=== PATIENT | male | born 1955 | race Caucasian/White ===

== ENCOUNTER 2019-11-24 11:39 | Inpatient (IN) ==
[2019-11-24] MEDS: 0.9 % SODIUM CHLORIDE 1,000 ML IV SCH (11:51)
--- NOTE | 2019-11-24 12:06 | Emergency Department Note ---
General Adult HPI - General Chief complaint: Blood Sugar Problem Stated complaint: High blood sugar Time Seen by Provider: 11/24/19 11:48 Source: EMS Mode of arrival: EMS - History of Present Illness HPI Narrative: This patient comes over from [facility] assisted because his blood sugar was over 500. He is been there for 5 weeks recovering from a bout of pneumonia. According the he is weak confused and kind of out of it today as well. No other specific complaints however. This patient is developmentally delayed. - Related Data Home Medications Medication Instructions Recorded Confirmed EPINEPHrine [Epipen 2-Jaguar] 0.3 mg .ROUTE ONCE 04/25/15 11/24/19 FLUoxetine HCL [Prozac] 10 mg PO DAILY 04/25/15 11/24/19 Omeprazole [Prilosec] 20 mg PO DAILY 04/25/15 11/24/19 Pravastatin [Pravachol] 20 mg PO HS 04/25/15 11/24/19 bimatoprost 0.01 % eye drops 1 drp OPHTHALMIC QPM 05/05/17 11/24/19 buspirone 10 mg tablet 10 mg PO BID tab 05/05/17 11/24/19 divalproex 500 mg tablet,delayed 500 mg PO TID tab 05/05/17 11/24/19 release loratadine 10 mg tablet 10 mg PO QDAY 05/05/17 11/24/19 quetiapine 50 mg tablet 100 mg PO BID 05/05/17 11/24/19 Ascorbic Acid [Vitamin C with Nga 500 mg PO DAILY 11/24/19 11/24/19 Hips] Bisacodyl [Dulcolax] 10 mg MS DAILY PRN 11/24/19 11/24/19 Brimonidine/Dorzolamide/Pf 1 gtt BOTH EYES BID 11/24/19 11/24/19 Canagliflozin [Invokana] 300 mg PO DAILY 11/24/19 11/24/19 Cholecalciferol (Vitamin D3) 5,000 units PO DAILY 11/24/19 11/24/19 [Vitamin D3] Glimepiride 8 mg PO DAILY 11/24/19 11/24/19 Glucagon,Human Recombinant 1 mg IM Q15M PRN 11/24/19 11/24/19 [Glucagon Emergency Kit] Magnesium Hydroxide [Milk of 30 ml PO DAILY PRN 11/24/19 11/24/19 Magnesia] Na Phos,M-B/Na Phos,Di-Ba [Fleets 1 dose MS DAILY PRN 11/24/19 11/24/19 Adult] Spironolactone [Aldactone] 25 mg PO DAILY 11/24/19 11/24/19 Tamsulosin HCl [Flomax] 0.4 mg PO QHS 11/24/19 11/24/19 Timolol Maleate [Timoptic] 1 gtt BOTH EYES BID 11/24/19 11/24/19 Tolnaftate Crm 1% [Tinactin Cream 1 dose TOPICAL DAILY PRN 11/24/19 11/24/19 1%] Vitamin E 400 unit PO DAILY 11/24/19 11/24/19 sitaGLIPtin [Januvia] 100 mg PO DAILY 11/24/19 11/24/19 Allergies Allergy/AdvReac Type Severity Reaction Status Date / Time risperidone [From Risperdal] Allergy Intermediate Unknown Verified 11/24/19 11:39 venom-honey bee Allergy Unknown Verified 11/24/19 11:39 [bee venom (honey bee)] ziprasidone [From Geodon] Allergy Verified 11/24/19 11:39 Review of Systems All systems ED: reviewed and negative except as stated. Past Medical History - Past Medical History [facility] Narrative: Medical History Edema (Acute) Urinary tract infection (Acute) Tinea pedis (Acute) Diarrhea in adult patient (Acute) Cough (Acute) Medical history: Reports: DM, GERD, hyperlipidemia, hypertension, seizures, other (mentally handicapped/ Developmental delay) Psychiatric history: Reports: no psych history Surgical history ED: Reports: non-contributory - Social History smoking status: Never smoker Alcohol use: Reports: None Drug use: Reports: none Physical Exam Limitations: altered mental status, physical limitation General appearance: in no apparent distress Head: atraumatic, normocephalic Eye: Present: normal appearance ENT: Present: normal exam Neck: Present: normal inspection Chest: Present: normal inspection Respiratory: Present: normal lung sounds bilaterally Cardiovascular: Present: regular rate, normal rhythm, normal heart sounds Abdominal: Present: soft. Absent: distention, tenderness Neurological: Present: alert Psychiatric: Present: normal affect Skin: Present: warm, dry Course Vital Signs Temperature 97.0 F 11/24/19 11:39 Pulse Rate 84 11/24/19 11:39 Respiratory Rate 22 11/24/19 11:39 Blood Pressure 121/77 11/24/19 11:39 Pulse Oximetry (%) 93 11/24/19 11:39 Temperature 97.0 F 11/24/19 11:39 Pulse Rate 79 11/24/19 18:32 Respiratory Rate 13 11/24/19 18:32 Blood Pressure 134/65 11/24/19 18:32 Pulse Oximetry (%) 97 11/24/19 18:32 Medical Decision Making - MDM Narrative Medical decision making narrative: This patient was hydrated with 2 L normal saline given 10 units of Humalog prior to arrival in the emergency room his blood sugar came down to 225. Patient's sodium came back little high at 156 chloride 110. He does have a urinary tract infection was treated with Levaquin. I did discuss case with the hospitalist and he will be admitted to the hospital. - Lab Data Lab results reviewed: Yes I reviewed the patient's lab results. Result diagrams: 11/24/19 11:58 11/24/19 11:58 Lab Results 11/24/19 11/24/19 11/24/19 Range/Units 11:58 11:58 12:44 WBC 4.7 (4.50-11.00) K/mcL RBC 3.39 L (4.63-6.08) M/mcL Hgb 12.1 L (13.7-17.5) g/dL Hct 38.5 L (40.1-51.0) % POC Hct (41.0-55.0) % MCV 113.6 H (80.0-100.0) fL MCH 35.7 H (26.0-34.0) pg MCHC 31.4 (31.0-36.0) g/dL RDW 16.1 H (11.5-14.5) % Plt Count 249 (140-440) K/mcL MPV 11.8 H (7.4-10.4) fL Gran % 54.2 (38.0-78.0) % Lymph % (Auto) 32.5 (15.5-49.0) % [place] % (Auto) 12.9 H (1.0-12.0) % Eos % (Auto) 0 (0.0-7.0) % Baso % (Auto) 0.4 (0.0-2.0) % Gran # 2.57 (1.80-8.00) K/mcL Lymph # (Auto) 1.54 (1.50-4.80) K/mcL [place] # (Auto) 0.61 (0.10-0.90) K/mcL Eos # (Auto) 0 (0.00-0.70) K/mcL Baso # (Auto) 0.02 (0.00-0.30) K/mcL VBG Lactic Acid 2.1 H (0.5-2.0) mmol/L POC Sodium (133-145) mmol/L Sodium 151 H (133-145) mmol/L POC Potassium (3.3-5.1) mmol/L Potassium 3.8 (3.3-5.1) mmol/L POC Chloride (96-108) mmol/L Chloride 110 H (96-108) mmol/L Carbon Dioxide 29 (22-30) mmol/L POC Total CO2 (22-30) mmol/L Anion Gap 12.0 (8-16) POC BUN (8-23) mg/dl BUN 72 H (8-23) mg/dl Creatinine 1.6 H (0.7-1.2) mg/dl POC Creatinine (0.7-1.2) mg/dl GFR Calculation 45 Glucose 361 H (70-105) mg/dL POC Glucose (70-105) mg/dL Calcium 9.5 (8.6-10.4) mg/dl POC WB Ioniz Calcium (1.16-1.32) mmol/L Total Bilirubin 0.8 (0.0-1.0) mg/dL AST 15 (0-37) U/l ALT 8 (0-40) U/l Alkaline Phosphatase 45 (39-117) U/L Total Protein 8.6 H (5.9-8.4) gm/dL Albumin 3.4 (3.2-5.2) gm/dL Globulin 5.2 H (2.2-3.7) gm/dL Albumin/Globulin Ratio 0.7 L (1.0-2.3) Beta-Hydroxybutyrate 0.14 (< 0.27) mmol/L Urine Color Urine Appearance Urine pH (5.0-9.0) Ur Specific [place] (1.000-1.035) Urine Protein (NEG) mg/dL Urine Glucose (UA) (NEG) mg/dL Urine Ketones (NEG) mg/dL Urine Occult Blood (<0.03) mg/dL Urine Nitrate (NEG) Urine Bilirubin (NEG) mg/dL Urine Urobilinogen (NEG) mg/dL Ur Leukocyte Esterase (NEG) /uL Urine RBC (0-1) /hpf Urine WBC (0-4) /hpf Ur Squamous Epith Cells (0-4) /hpf Urine Bacteria (0) /hpf Ur Culture Indicated? 11/24/19 11/24/19 11/24/19 Range/Units 13:28 15:43 16:43 WBC (4.50-11.00) K/mcL RBC (4.63-6.08) M/mcL Hgb (13.7-17.5) g/dL Hct (40.1-51.0) % POC Hct 35.0 L (41.0-55.0) % MCV (80.0-100.0) fL MCH (26.0-34.0) pg MCHC (31.0-36.0) g/dL RDW (11.5-14.5) % Plt Count (140-440) K/mcL MPV (7.4-10.4) fL Gran % (38.0-78.0) % Lymph % (Auto) (15.5-49.0) % [place] % (Auto) (1.0-12.0) % Eos % (Auto) (0.0-7.0) % Baso % (Auto) (0.0-2.0) % Gran # (1.80-8.00) K/mcL Lymph # (Auto) (1.50-4.80) K/mcL [place] # (Auto) (0.10-0.90) K/mcL Eos # (Auto) (0.00-0.70) K/mcL Baso # (Auto) (0.00-0.30) K/mcL VBG Lactic Acid 1.3 (0.5-2.0) mmol/L POC Sodium 156 H (133-145) mmol/L Sodium (133-145) mmol/L POC Potassium 4.0 (3.3-5.1) mmol/L Potassium (3.3-5.1) mmol/L POC Chloride 116 H (96-108) mmol/L Chloride (96-108) mmol/L Carbon Dioxide (22-30) mmol/L POC Total CO2 31 H (22-30) mmol/L Anion Gap (8-16) POC BUN 58 H (8-23) mg/dl BUN (8-23) mg/dl Creatinine (0.7-1.2) mg/dl POC Creatinine 1.4 H (0.7-1.2) mg/dl GFR Calculation Glucose (70-105) mg/dL POC Glucose 247 H (70-105) mg/dL Calcium (8.6-10.4) mg/dl POC WB Ioniz Calcium 1.19 (1.16-1.32) mmol/L Total Bilirubin (0.0-1.0) mg/dL AST (0-37) U/l ALT (0-40) U/l Alkaline Phosphatase (39-117) U/L Total Protein (5.9-8.4) gm/dL Albumin (3.2-5.2) gm/dL Globulin (2.2-3.7) gm/dL Albumin/Globulin Ratio (1.0-2.3) Beta-Hydroxybutyrate (< 0.27) mmol/L Urine Color Yellow Urine Appearance Cloudy Urine pH 5.0 (5.0-9.0) Ur Specific [place] 1.025 (1.000-1.035) Urine Protein 30 A (NEG) mg/dL Urine Glucose (UA) >=500 A (NEG) mg/dL Urine Ketones Neg (NEG) mg/dL Urine Occult Blood 0.2 A (<0.03) mg/dL Urine Nitrate Neg (NEG) Urine Bilirubin Neg (NEG) mg/dL Urine Urobilinogen Neg (NEG) mg/dL Ur Leukocyte Esterase 500 A (NEG) /uL Urine RBC 13 H (0-1) /hpf Urine WBC > 182 H (0-4) /hpf Ur Squamous Epith Cells 0 (0-4) /hpf Urine Bacteria Few A (0) /hpf Ur Culture Indicated? Yes - Radiology Data Radiology results reviewed: Yes I reviewed the patient's radiology results. Disposition Pt seen by TELEVISION NEWS PHOTOGRAPHER/PA only: No Clinical Impression: UTI (urinary tract infection), Hypernatremia Disposition: Xfer As Outpt/Obs ([facility]) Referrals: Yumiko Hernandez MD [Primary Care Provider] - Time of Disposition: 19:27
--- NOTE | 2019-11-24 12:29 | XRay Report ---
CLINICAL INFORMATION:History of pneumonia. Hyperglycemia TECHNIQUE: AP chest x-ray COMPARISON: Previous chest x-rays dated 07/31/2019, 02/13/2019 FINDINGS:Lungs are negative. No parenchymal infiltrate or mass. Lungs are significantly improved since 07/31/2019. Heart size and vascularity are normal. No pulmonary edema or pulmonary congestion. Leigh and mediastinum are negative. IMPRESSION: 1. Negative AP chest x-ray 2. Improved chest x-ray since 07/31/2019 Interpreted and Authenticated by: Gaurav Cleveland 11/24/19
[2019-11-24 12:44] LABS: Basophils # (Auto) 0.02 K/mcL (0.00-0.30); Basophils % (Auto) 0.4 % (0.0-2.0); Eosinophils # (Auto) 0 K/mcL (0.00-0.70); Eosinophils % (Auto) 0 % (0.0-7.0); Granulocytes % (Auto) 54.2 % (38.0-78.0); Hematocrit 38.5 % (40.1-51.0); Hemoglobin 12.1 g/dL (13.7-17.5); Lymphocytes # (Auto) 1.54 K/mcL (1.50-4.80); Lymphocytes % (Auto) 32.5 % (15.5-49.0); Mean Cell Volume 113.6 fL (80.0-100.0); Mean Corpuscular HGB Conc 31.4 g/dL (31.0-36.0); Mean Platelet Volume 11.8 fL (7.4-10.4); Monocytes # (Auto) 0.61 K/mcL (0.10-0.90); Monocytes % (Auto) 12.9 % (1.0-12.0); Platelet Count 249 K/mcL (140-440); RBC 3.39 M/mcL (4.63-6.08); Red Cell Distribution Width 16.1 % (11.5-14.5); WBC 4.7 K/mcL (4.50-11.00)
[2019-11-24 13:07] LABS: ALT/SGPT 8 U/l (0-40); AST/SGOT 15 U/l (0-37); Albumin 3.4 gm/dL (3.2-5.2); Albumin/Globulin Ratio 0.7 (1.0-2.3); Alkaline Phosphatase 45 U/L (39-117); Beta Hydroxybutyrate 0.14 mmol/L (< 0.27); Bilirubin,Total 0.8 mg/dL (0.0-1.0); Blood Urea Nitrogen 72 mg/dl (8-23); Calcium 9.5 mg/dl (8.6-10.4); Carbon Dioxide 29 mmol/L (22-30); Globulin 5.2 gm/dL (2.2-3.7); Glomerular Filtration Rate 45; Glucose 361 mg/dL (70-105)
[2019-11-24 13:08] LABS: Chloride 110 mmol/L (96-108)
[2019-11-24 14:17] LABS: Appearance,Urine CLOUDY; Bacteria,Urine FEW /hpf (0); Bilirubin,Urine NEG (NEG); Color,Urine YELLOW; Culture Indicated,Urine YES; Glucose,Urine (UA) >=500 mg/dL (NEG); Ketones,Urine NEG (NEG); Leukocyte Esterase,Urine 500 /uL (NEG); Nitrate,Urine NEG (NEG); Protein,Urine 30 mg/dL (NEG); Specific Gravity,Urine 1.025 (1.000-1.035); Urine Blood 0.2 mg/dL (<0.03); Urine RBC 13 /hpf (0-1); Urine Squamous Epithelial Cell 0 /hpf (0-4); Urine WBC > 182 /hpf (0-4); Urobilinogen,Urine NEG (NEG)
[2019-11-24] MEDS ORDERED: LEVOFLOXACIN 750 MG/150 ML BAG IV ONE (14:57)
[2019-11-24] MEDS ORDERED: 0.9 % SODIUM CHLORIDE 1,000 ML IV ONE (14:57)
[2019-11-24 16:58] LABS: POC Blood Urea Nitrogen 58 mg/dl (8-23); POC CO2 31 mmol/L (22-30); POC Calcium, Ionized 1.19 mmol/L (1.16-1.32); POC Chloride 116 mmol/L (96-108); POC Creatinine 1.4 mg/dl (0.7-1.2); POC Glucose, Random 247 mg/dL (70-105); POC Sodium 156 mmol/L (133-145)
--- NOTE | 2019-11-24 19:59 | Internal Med History&Physical ---
Medical - H&P: [facility] Patient information: Note initiated : 11/24/19 at 7:47 pm Service Date, if different from initiated Date: [] Patient: Keny Mccartney a 64 y/o M admitted on for High blood sugar. Chief Complaint: [] History of present illness: Mr. 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 He lives in a private apartment and had 24 caregivers. But was hospitalized at [facility] in early October for pneumonia. He was discharged to [facility] and has been there for the past month. Is felt that he developed aspiration pneumonia. Patient unable to give history and history obtained from chart. Per the chart patient has had lethargy over the past couple days and was noted to have a blood sugar greater than 500 at the nursing facility and thus sent in. In the ED was treated with IV fluids and insulin which improved his mild elevated lactate and his hyperglycemia. He was noted to have a sodium level of 151 and a creatinine of 1.6 with a BUN of 72. Unable to gather review of systems given patient's chronic neurological state Medical - H&P: PMH Medical history: Medical History Edema (Acute) Urinary tract infection (Acute) Tinea pedis (Acute) Diarrhea in adult patient (Acute) Cough (Acute) Surgical history: Tonsillectomy adenoidectomy left arm fracture right shoulder fracture left wrist fracture right wrist fracture left knee arthroplasty Family: Father of cancer at 63 mother alive at 87 who has atrial fibrillation Social History (Last Updated 05/05/17 @ 16:10 by Iliana Bender RN) No tobacco or alcohol Patient lives at [facility] after hospitalization over a month ago for pneumonia Medical - H&P: Meds Home Medications Medication Instructions Recorded Confirmed Type EPINEPHrine [Epipen 2-Jaguar] 0.3 mg .ROUTE ONCE 04/25/15 11/24/19 History FLUoxetine HCL [Prozac] 10 mg PO DAILY 04/25/15 11/24/19 History Omeprazole [Prilosec] 20 mg PO DAILY 04/25/15 11/24/19 History Pravastatin [Pravachol] 20 mg PO HS 04/25/15 11/24/19 History bimatoprost 0.01 % eye drops 1 drp OPHTHALMIC QPM 05/05/17 11/24/19 History buspirone 10 mg tablet 10 mg PO BID tab 05/05/17 11/24/19 History divalproex 500 mg tablet,delayed 500 mg PO TID tab 05/05/17 11/24/19 History release loratadine 10 mg tablet 10 mg PO QDAY 05/05/17 11/24/19 History quetiapine 50 mg tablet 100 mg PO BID 05/05/17 11/24/19 History Ascorbic Acid [Vitamin C with Nga 500 mg PO DAILY 11/24/19 11/24/19 History Hips] Bisacodyl [Dulcolax] 10 mg NE DAILY PRN 11/24/19 11/24/19 History Brimonidine/Dorzolamide/Pf 1 gtt BOTH EYES BID 11/24/19 11/24/19 History Canagliflozin [Invokana] 300 mg PO DAILY 11/24/19 11/24/19 History Cholecalciferol (Vitamin D3) 5,000 units PO DAILY 11/24/19 11/24/19 History [Vitamin D3] Glimepiride 8 mg PO DAILY 11/24/19 11/24/19 History Glucagon,Human Recombinant 1 mg IM Q15M PRN 11/24/19 11/24/19 History [Glucagon Emergency Kit] Magnesium Hydroxide [Milk of 30 ml PO DAILY PRN 11/24/19 11/24/19 History Magnesia] Na Phos,M-B/Na Phos,Di-Ba [Fleets 1 dose NE DAILY PRN 11/24/19 11/24/19 History Adult] Spironolactone [Aldactone] 25 mg PO DAILY 11/24/19 11/24/19 History Tamsulosin HCl [Flomax] 0.4 mg PO QHS 11/24/19 11/24/19 History Timolol Maleate [Timoptic] 1 gtt BOTH EYES BID 11/24/19 11/24/19 History Tolnaftate Crm 1% [Tinactin Cream 1 dose TOPICAL DAILY PRN 11/24/19 11/24/19 History 1%] Vitamin E 400 unit PO DAILY 11/24/19 11/24/19 History sitaGLIPtin [Januvia] 100 mg PO DAILY 11/24/19 11/24/19 History Allergies Allergy/AdvReac Type Severity Reaction Status Date / Time risperidone [From Risperdal] Allergy Intermediate Unknown Verified 11/24/19 11:39 venom-honey bee Allergy Unknown Verified 11/24/19 11:39 [bee venom (honey bee)] ziprasidone [From Geodon] Allergy Verified 11/24/19 11:39 Medical - H&P: Exam - Constitutional Vitals: Temp Pulse Resp BP Pulse Ox 97.0 F 79 13 134/65 97 11/24/19 11:39 11/24/19 18:32 11/24/19 18:32 11/24/19 18:32 11/24/19 18:32 Exam: General: Awake, No acute Distress Eyes/N/T: EOMI, PERRL, dry MM Head/Neck: neck supple, normocephalic atraumatic CV: Regular with occasional ectopic, No murmurs, normal s1/s2 Pulm: Clear b/l, no wheezing/rhonchi/rales Abd: soft, nontender, +BS x4 Ext: no clubbing/cyanosis/edema Neuro: Awake but drowsy, seems to respond to voice but does not follow commands, does not cooperate with exam Skin: warm/dry Medical - H&P: Reslt - Labs CBC & Chem 7: 11/24/19 11:58 11/24/19 11:58 Labs: Short CBC 11/24/19 Range/Units 11:58 WBC 4.7 (4.50-11.00) K/mcL Hgb 12.1 L (13.7-17.5) g/dL Hct 38.5 L (40.1-51.0) % Plt Count 249 (140-440) K/mcL BMP 11/24/19 11:58 Sodium 151 H Potassium 3.8 Chloride 110 H Carbon Dioxide 29 BUN 72 H Creatinine 1.6 H Glucose 361 H Calcium 9.5 Liver Function 11/24/19 Range/Units 11:58 Total Bilirubin 0.8 (0.0-1.0) mg/dL AST 15 (0-37) U/l ALT 8 (0-40) U/l Alkaline Phosphatase 45 (39-117) U/L Albumin 3.4 (3.2-5.2) gm/dL Urine 11/24/19 Range/Units 13:28 Urine Color Yellow Urine Appearance Cloudy Urine pH 5.0 (5.0-9.0) Ur Specific [place] 1.025 (1.000-1.035) Urine Protein 30 A (NEG) mg/dL Urine Glucose (UA) >=500 A (NEG) mg/dL Medical - H&P: A/P - Narrative A/P Narrative: A: *Hyponatremia: 2/2 dehydration -suspect this is chronic and not acute *Dehydration: *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
[2019-11-24 20:33] LABS: Blood Urea Nitrogen 67 mg/dl (8-23); Calcium 9.5 mg/dl (8.6-10.4); Carbon Dioxide 32 mmol/L (22-30); Chloride 112 mmol/L (96-108); Glomerular Filtration Rate 53; Glucose 217 mg/dL (70-105)
[2019-11-24] MEDS ORDERED: DEXTROSE 5% IN WATER 1,000 ML IV SCH (21:30)
[2019-11-24 21:36] LABS: Phosphorous 4.7 mg/dL (2.7-4.5)
[2019-11-24] MEDS ORDERED: SENNOSIDES 1 TABLET PO PRN (22:10)
[2019-11-24] MEDS ORDERED: MAGNESIUM SULFATE 2 GM/50 ML BAG IV PRN (22:10)
[2019-11-24] MEDS ORDERED: DEXTROSE 50% 50 ML VIAL IV PRN (22:10)
[2019-11-24] MEDS ORDERED: PRAVASTATIN 20 MG TABLET PO SCH (22:10)
[2019-11-24] MEDS ORDERED: ONDANSETRON 4 MG/2 ML VIAL IV PRN (22:10)
[2019-11-24] MEDS ORDERED: DEXTROSE 31 GM ORAL.SUSP PO PRN (22:10)
[2019-11-24] MEDS ORDERED: POLYETHYLENE GLYCOL 3350 17 GM PACKET PO PRN (22:10)
[2019-11-24] MEDS ORDERED: INSULIN REGULAR, HUMAN 50 UNIT in 0.9 % SODIUM CHLORIDE 99.5 ML IV SCH (22:10)
[2019-11-24] MEDS ORDERED: IPRATROPIUM/ALBUTEROL 3 ML AMPUL.NEB NEB PRN (22:10)
[2019-11-24] MEDS ORDERED: POTASSIUM CHLORIDE 40 MEQ in DEXTROSE 5% IN WATER 500 ML IV PRN (22:10)
[2019-11-24] MEDS ORDERED: QUETIAPINE FUMARATE 100 MG PO SCH (22:10)
[2019-11-24] MEDS ORDERED: POTASSIUM CHLORIDE 20 MEQ TABLET PO PRN ×2 (22:10)
[2019-11-24] MEDS ORDERED: cefTRIAXone 1 GM in DEXTROSE 5% IN WATER 50 ML IV SCH (22:10)
[2019-11-24] MEDS ORDERED: NON FORMULARY MEDICATION 1 DOSE MISCELL (Divalproex Sodium [Depakote] 500 MG) PO SCH (22:10)
[2019-11-24] MEDS ORDERED: busPIRone 10 MG TABLET PO SCH (22:10)
[2019-11-24] MEDS ORDERED: ACETAMINOPHEN 325 MG TABLET PO PRN (22:10)
[2019-11-24] MEDS: DEXTROSE 5% IN WATER 1,000 ML IV SCH (22:25)
[2019-11-24] MEDS: 0.9 % SODIUM CHLORIDE 10 ML SYRINGE IV SCH (23:48)
[2019-11-25] MEDS ORDERED: cefTRIAXone 1 GM VIAL ONE (00:39)
[2019-11-25] MEDS ORDERED: INSULIN REGULAR, HUMAN 1 UNIT/0.01 ML UNIT ONE ×2 (01:20→01:36)
[2019-11-25] MEDS: DOCUSATE SODIUM 100 MG CAPSULE PO SCH ×3 (05:42→21:18)
[2019-11-25] MEDS: INSULIN LISPRO 1 UNIT/0.01 ML UNIT SQ SCH ×5 (05:42→21:18)
[2019-11-25] MEDS: TAMSULOSIN 0.4 MG CAPSULE PO SCH ×2 (05:42→21:17)
[2019-11-25] MEDS: 0.9 % SODIUM CHLORIDE 10 ML SYRINGE IV SCH ×3 (06:01→21:22)
[2019-11-25 06:50] LABS: Basophils # (Auto) 0.02 K/mcL (0.00-0.30); Basophils % (Auto) 0.4 % (0.0-2.0); Eosinophils # (Auto) 0 K/mcL (0.00-0.70); Eosinophils % (Auto) 0 % (0.0-7.0); Granulocytes % (Auto) 65.3 % (38.0-78.0); Hemoglobin 11.5 g/dL (13.7-17.5); Lymphocytes # (Auto) 1.29 K/mcL (1.50-4.80); Mean Cell Volume 116.6 fL (80.0-100.0); Mean Corpuscular HGB Conc 30.3 g/dL (31.0-36.0); Mean Platelet Volume 11.7 fL (7.4-10.4); Monocytes # (Auto) 0.48 K/mcL (0.10-0.90); Monocytes % (Auto) 9.3 % (1.0-12.0); Platelet Count 232 K/mcL (140-440); RBC 3.26 M/mcL (4.63-6.08); Red Cell Distribution Width 16.1 % (11.5-14.5); WBC 5.2 K/mcL (4.50-11.00)
[2019-11-25 07:12] LABS: ALT/SGPT 7 U/l (0-40); AST/SGOT 19 U/l (0-37); Albumin 3.1 gm/dL (3.2-5.2); Albumin/Globulin Ratio 0.6 (1.0-2.3); Alkaline Phosphatase 43 U/L (39-117); Bilirubin,Direct < 0.2 mg/dL (0.0-0.3); Bilirubin,Total 0.7 mg/dL (0.0-1.0); Blood Urea Nitrogen 63 mg/dl (8-23); Calcium 9.1 mg/dl (8.6-10.4); Carbon Dioxide 27 mmol/L (22-30); Globulin 4.9 gm/dL (2.2-3.7); Glomerular Filtration Rate 58; Glucose 260 mg/dL (70-105); Lactate Dehydrogenase 333 U/L (94-250); Triglycerides 159 mg/dl (<150)
[2019-11-25 07:18] LABS: Chloride 113 mmol/L (96-108); Phosphorous 3.2 mg/dL (2.7-4.5)
--- NOTE | 2019-11-25 07:22 | Internal Med Progress Note ---
Medical - PN: Subj Patient information: Note initiated : 11/25/19 at 7:17 am Service Date, if different from initiated Date: [] Patient: Keny Mccartney a 64 y/o M admitted on 11/24/19 for High blood sugar. Chief Complaint: [] Interval history: Mr. 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 He lives in a private apartment and had 24 caregivers. But was hospitalized at [facility] in early October for pneumonia. He was discharged to [facility] and has been there for the past month. Is felt that he developed aspiration pneumonia. Patient unable to give history and history obtained from chart. Per the chart patient has had lethargy over the past couple days and was noted to have a blood sugar greater than 500 at the nursing facility and thus sent in. In the ED was treated with IV fluids and insulin which improved his mild elevated lactate and his hyperglycemia. He was noted to have a sodium level of 151 and a creatinine of 1.6 with a BUN of 72. 2/ Patient much more alert this morning. Opens eyes to voice and follows some simple commands. No overnight events. Unable to gather review of systems given patient's chronic neurological state - Constitutional Vitals: Vital Signs Temp Pulse Resp BP Pulse Ox 97.1 F 83 20 107/66 99 11/25/19 04:06 11/25/19 05:00 11/25/19 05:00 11/25/19 05:00 11/25/19 05:00 Period Temp Pulse Resp BP Sys/Luther Pulse Ox Last 24 Hr 97.0 F-98.7 F 40-88 9-27 63-160/51-128 87-100 Intake and Output 11/24/19 11/25/19 11/25/19 21:59 05:59 13:59 Intake Total 2150 606 Output Total 1405 110 Balance 2150 -799 -110 Weight 97.296 kg Intake & Output: Intake & Output 11/24/19 11/25/19 11/25/19 21:59 05:59 13:59 Intake Total 2150 606 Output Total 1405 110 Balance 2150 -799 -110 Weight 97.296 kg Intake: IV 2150 106 Sodium Chloride 0.9% 1,000 ml @ 2000 Wide Open IV [facility] Rx#: [id number] Dextrose 5% in Water 1,000 ml @ 56 125 mls/hr IV .Q8H [facility] Rx#: [id number] Rocephin 1 gm In Dextrose 5% in 50 Water 50 ml @ 100 mls/hr IV Q24H [facility] Rx#:[id number] Oral 500 Output: Urine Catheter Amount 1405 110 Straight 300 Other: Urine Appearance Cloudy Clear Sediment Straight Cloudy Urine Color Bright Yellow Bright Yellow Straight Bright Yellow Exam: General: Awake, No acute Distress Eyes/N/T: EOMI, Head/Neck: neck supple, CV: Regular with occasional ectopic, No murmurs, Pulm: Clear b/l, no wheezing/rhonchi/rales Abd: soft, nontender, +BS x4 Ext: no clubbing/cyanosis/edema Neuro: alert and Awake, follows simple commands, Skin: warm/dry Medical - PN: Obj Da - Labs CBC & Chem 7: 11/25/19 05:00 11/25/19 05:00 Labs: Abnormal Lab Results 11/25/19 11/25/19 11/24/19 05:00 05:00 19:25 RBC 3.26 L Hgb 11.5 L Hct 38.0 L POC Hct MCV 116.6 H MCH 35.3 H MCHC 30.3 L RDW 16.1 H MPV 11.7 H [place] % (Auto) Lymph # (Auto) 1.29 L VBG Lactic Acid POC Sodium Sodium 155 H POC Chloride Chloride 112 H Carbon Dioxide 32 H POC Total CO2 POC BUN BUN 63 H 67 H Creatinine 1.3 H 1.4 H POC Creatinine Glucose 260 H 217 H POC Glucose Osmolality Uric Acid 9.0 H Phosphorus Magnesium 2.7 H Lactate Dehydrogenase 333 H Total Protein Albumin 3.1 L Globulin 4.9 H Albumin/Globulin Ratio 0.6 L Triglycerides 159 H Urine Protein Urine Glucose (UA) Urine Occult Blood Ur Leukocyte Esterase Urine RBC Urine WBC Urine Bacteria 11/24/19 11/24/19 11/24/19 16:43 16:20 13:28 RBC Hgb Hct POC Hct 35.0 L MCV MCH MCHC RDW MPV [place] % (Auto) Lymph # (Auto) VBG Lactic Acid POC Sodium 156 H Sodium POC Chloride 116 H Chloride Carbon Dioxide POC Total CO2 31 H POC BUN 58 H BUN Creatinine POC Creatinine 1.4 H Glucose POC Glucose 247 H Osmolality Uric Acid Phosphorus 4.7 H Magnesium 3.0 H Lactate Dehydrogenase Total Protein Albumin Globulin Albumin/Globulin Ratio Triglycerides Urine Protein 30 A Urine Glucose (UA) >=500 A Urine Occult Blood 0.2 A Ur Leukocyte Esterase 500 A Urine RBC 13 H Urine WBC > 182 H Urine Bacteria Few A 11/24/19 11/24/19 11/24/19 13:25 12:44 11:58 RBC Hgb Hct POC Hct MCV MCH MCHC RDW MPV [place] % (Auto) Lymph # (Auto) VBG Lactic Acid 2.1 H POC Sodium Sodium 151 H POC Chloride Chloride 110 H Carbon Dioxide POC Total CO2 POC BUN BUN 72 H Creatinine 1.6 H POC Creatinine Glucose 361 H POC Glucose Osmolality 366 H Uric Acid Phosphorus Magnesium Lactate Dehydrogenase Total Protein 8.6 H Albumin Globulin 5.2 H Albumin/Globulin Ratio 0.7 L Triglycerides Urine Protein Urine Glucose (UA) Urine Occult Blood Ur Leukocyte Esterase Urine RBC Urine WBC Urine Bacteria 11/24/19 11:58 RBC 3.39 L Hgb 12.1 L Hct 38.5 L POC Hct MCV 113.6 H MCH 35.7 H MCHC RDW 16.1 H MPV 11.8 H [place] % (Auto) 12.9 H Lymph # (Auto) VBG Lactic Acid POC Sodium Sodium POC Chloride Chloride Carbon Dioxide POC Total CO2 POC BUN BUN Creatinine POC Creatinine Glucose POC Glucose Osmolality Uric Acid Phosphorus Magnesium Lactate Dehydrogenase Total Protein Albumin Globulin Albumin/Globulin Ratio Triglycerides Urine Protein Urine Glucose (UA) Urine Occult Blood Ur Leukocyte Esterase Urine RBC Urine WBC Urine Bacteria Meds: Medications Acetaminophen (Tylenol) 650 mg PO Q6HP PRN PRN Reason: PAIN/FEVER > 101 Albuterol/Ipratropium (Duoneb) 3 ml NEB Q4HP PRN PRN Reason: Shortness Of Breath Buspirone HCl (Buspar) 10 mg PO BID [facility] Dextrose (Dextrose 50%) 0 ml IV UD PRN PRN Reason: Hypoglycemia Diagnostic Test (Pha) (Accu-Chek) 1 each FS ACHS [facility] Last Admin: 11/25/19 07:15 Dose: Not Given Documented by: Diagnostic Test (Pha) (Accu-Chek) 1 each FS Q1 [facility] Last Admin: 11/25/19 07:13 Dose: 1 each Documented by: Divalproex Sodium (Depakote Delayed Release) 500 mg PO TID [facility] Docusate Sodium (Colace) 100 mg PO BID [facility] Last Admin: 11/25/19 05:42 Dose: Not Given Documented by: Enoxaparin Sodium (Lovenox) 40 mg SQ DAILY [facility] Fluoxetine HCl (Prozac) 10 mg PO DAILY [facility] Glucose (Insta-Glucose) 15 gm PO PRN PRN PRN Reason: Hypoglycemia Potassium Chloride 40 meq/ (Dextrose) 520 mls @ 130 mls/hr IV UD PRN PRN Reason: Potassium < 3 Magnesium Sulfate (Magnesium Sulfate) 2 gm in 50 mls @ 50 mls/hr IV UD PRN PRN Reason: Magnesium </= 1.6 Ceftriaxone Sodium 1 gm/ (Dextrose) 50 mls @ 100 mls/hr IV Q24H [facility]; Protocol Last Infusion: 11/25/19 02:28 Dose: Infused Documented by: Insulin Human Regular 50 unit/ (Sodium Chloride) 100 mls @ 0 mls/hr IV DUR [facility]; Protocol Dextrose (Dextrose 5% In Water) 1,000 mls @ 100 mls/hr IV .Q10H [facility] Last Admin: 11/24/19 22:25 Dose: 100 mls/hr Documented by: Insulin Human Lispro (Humalog) 0 unit SQ ACHS [facility]; Protocol Last Admin: 11/25/19 07:17 Dose: Not Given Documented by: Ondansetron HCl (Zofran) 4 mg IV Q4HP PRN PRN Reason: Nausea And Vomiting Pantoprazole Sodium (Protonix) 40 mg IV QAMAC [facility] Bimatoprost [Lumigan (] Ophth Dps) 1 dose OU QPM [facility] Brimonidine/Dorzolamide/Pf Ophth Dps 1 dose BOTH EYES BID [facility] Timolol Maleate [ (Timoptic] Ophth Dps) 1 dose BOTH EYES BID [facility] Polyethylene Glycol (Miralax) 17 gm PO DAILYP PRN PRN Reason: Constipation Potassium Chloride (Kdur) 40 meq PO UD PRN PRN Reason: Potssium is 3-3.5 Potassium Chloride (Kdur) 40 meq PO UD PRN PRN Reason: Potassium < 3 Quetiapine Fumarate (Seroquel) 100 mg PO BID [facility] Senna (Senokot) 2 tab PO DAILYP PRN PRN Reason: Constipation Simvastatin (Zocor) 10 mg PO HS [facility] Sodium Chloride (Saline Flush) 10 ml IV Q8 [facility] Last Admin: 11/25/19 06:01 Dose: Not Given Documented by: Tamsulosin HCl (Flomax) 0.4 mg PO QHS [facility] Last Admin: 11/25/19 05:42 Dose: Not Given Documented by: Medical - PN: A/P - Time Spent With Patient Total time spent is greater than 50% in coordination of care (as documented) at patient's floor/unit and/or counseling patient: - Narrative A/P Narrative: A: *Hyponatremia: 2/2 dehydration -suspect this is chronic and not acute *Dehydration: *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
[2019-11-25] MEDS: 0.9 % SODIUM CHLORIDE 1,000 ML IV SCH (08:31)
[2019-11-25] MEDS: DEXTROSE 5% IN WATER 1,000 ML IV SCH ×4 (08:53→21:21)
[2019-11-25] MEDS: busPIRone 5 MG TABLET PO SCH ×2 (08:53→21:17)
[2019-11-25] MEDS: PANTOPRAZOLE 40 MG VIAL IV SCH (08:53)
[2019-11-25] MEDS: ENOXAPARIN 40 MG/0.4 ML SYRINGE SQ SCH (08:53)
[2019-11-25] MEDS: QUEtiapine 100 MG TABLET PO SCH ×2 (08:54→21:17)
[2019-11-25] MEDS: DIVALPROEX SODIUM 250 MG TABLET PO SCH ×3 (08:54→21:17)
[2019-11-25] MEDS: FLUoxetine HCL 10 MG CAPSULE PO SCH (08:54)
[2019-11-25] MEDS: DORZOLAMIDE 2% BOTH EYES SCH ×3 (10:49→21:18)
[2019-11-25] MEDS: TIMOLOL MALEATE BOTH EYES SCH ×3 (10:50→21:18)
[2019-11-25 12:41] LABS: Blood Urea Nitrogen 53 mg/dl (8-23); Calcium 9.4 mg/dl (8.6-10.4); Carbon Dioxide 31 mmol/L (22-30); Glomerular Filtration Rate 64; Glucose 176 mg/dL (70-105)
[2019-11-25 12:57] LABS: Chloride 110 mmol/L (96-108)
[2019-11-25] MEDS ORDERED: DEXTROSE 5% IV SCH ×2 (13:00→16:30)
[2019-11-25] MEDS ORDERED: WATER IV SCH ×2 (13:00→16:30)
[2019-11-25] MEDS ORDERED: INSULIN REGULAR IV SCH ×2 (13:00→16:30)
[2019-11-25] MEDS ORDERED: HUMAN IV SCH ×2 (13:00→16:30)
[2019-11-25] MEDS: cefTRIAXone 1 GM VIAL IV SCH (15:16)
[2019-11-25] MEDS ORDERED: POTASSIUM CHLORIDE 20 MEQ TABLET PO ONE ×2 (16:40→19:59)
[2019-11-25 17:12] LABS: Blood Urea Nitrogen 48 mg/dl (8-23); Calcium 9.3 mg/dl (8.6-10.4); Carbon Dioxide 32 mmol/L (22-30); Chloride 108 mmol/L (96-108); Glomerular Filtration Rate 71; Glucose 145 mg/dL (70-105)
[2019-11-25 18:56] LABS: Hemoglobin A1C 9.3 % HGB (4.0-6.0)
[2019-11-25 20:43] LABS: Blood Urea Nitrogen 44 mg/dl (8-23); Calcium 9.1 mg/dl (8.6-10.4); Carbon Dioxide 31 mmol/L (22-30); Chloride 105 mmol/L (96-108); Glomerular Filtration Rate 71; Glucose 186 mg/dL (70-105)
[2019-11-25] MEDS ORDERED: SIMVASTATIN 10 MG TABLET PO SCH (21:00)
[2019-11-26] MEDS: INSULIN LISPRO 1 UNIT/0.01 ML UNIT SQ SCH ×8 (04:06→21:02)
[2019-11-26] MEDS: 0.9 % SODIUM CHLORIDE 10 ML SYRINGE IV SCH ×3 (05:08→21:03)
[2019-11-26 06:43] LABS: Bilirubin,Direct < 0.2 mg/dL (0.0-0.3); Chloride 108 mmol/L (96-108)
[2019-11-26 06:53] LABS: ALT/SGPT 7 U/l (0-40); AST/SGOT 31 U/l (0-37); Albumin 2.8 gm/dL (3.2-5.2); Albumin/Globulin Ratio 0.6 (1.0-2.3); Alkaline Phosphatase 47 U/L (39-117); Blood Urea Nitrogen 39 mg/dl (8-23); Calcium 8.9 mg/dl (8.6-10.4); Carbon Dioxide 25 mmol/L (22-30); Globulin 4.9 gm/dL (2.2-3.7); Glomerular Filtration Rate 80; Glucose 210 mg/dL (70-105); Lactate Dehydrogenase 442 U/L (94-250); Phosphorous 2.8 mg/dL (2.7-4.5); Triglycerides 133 mg/dl (<150); Uric Acid 6.6 mg/dL (2.5-8.0)
[2019-11-26 07:02] LABS: Sodium, Urine Random < 20 mmol/L
[2019-11-26] MEDS ORDERED: DEXTROSE 5% IN WATER 250 ML IV SCH (07:15)
--- NOTE | 2019-11-26 07:15 | Internal Med Progress Note ---
Medical - PN: Subj Patient information: Note initiated : 11/26/19 at 7:11 am Service Date, if different from initiated Date: [] Patient: Keny Mccartney a 64 y/o M admitted on 11/24/19 for High blood sugar. Chief Complaint: [] Interval history: Mr. 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 He lives in a private apartment and had 24 caregivers. But was hospitalized at [facility] in early October for pneumonia. He was discharged to [facility] and has been there for the past month. Is felt that he developed aspiration pneumonia. Patient unable to give history and history obtained from chart. Per the chart patient has had lethargy over the past couple days and was noted to have a blood sugar greater than 500 at the nursing facility and thus sent in. In the ED was treated with IV fluids and insulin which improved his mild elevated lactate and his hyperglycemia. He was noted to have a sodium level of 151 and a creatinine of 1.6 with a BUN of 72. 11/25 Patient much more alert this morning. Opens eyes to voice and follows some simple commands. No overnight events. 11/26 Patient doing well. No overnight events. Pain by speech therapy and re commended to continue on pured diet. Unable to gather review of systems given patient's chronic neurological state - Constitutional Vitals: Vital Signs Temp Pulse Resp BP Pulse Ox 98.0 F 72 95 H 113/59 99 11/26/19 04:02 11/25/19 15:32 11/26/19 04:02 11/26/19 04:02 11/26/19 02:02 Period Temp Pulse Resp BP Sys/Luther Pulse Ox Last 24 Hr 97.6 F-98.9 F 72-82 14-95 99-138/52-83 94-100 Intake and Output 11/25/19 11/26/19 11/26/19 21:59 05:59 13:59 Intake Total 3062 650 Output Total 1000 950 Balance 2061 -300 Weight 100.516 kg Intake & Output: Intake & Output 11/25/19 11/26/19 11/26/19 21:59 05:59 13:59 Intake Total 3062 650 Output Total 1000 950 Balance [id number] Weight 100.516 kg Intake: IV 2582 50 Dextrose 5% in Water 1,000 ml @ 2582 50 75 mls/hr IV .[id number] [facility] Rx#: [id number] Oral 480 600 Output: Urine Catheter Amount 1000 950 Other: Meal Dinner Percent of Meal Consumed 75% Feeding Ability Total Assistance Urine Appearance Sediment Cloudy Sediment Straight Cloudy Cloudy Sediment Urine Color [place] Bright Yellow Straight Bright Yellow Dark Yellow Stool Size Large Stool Color Brown Stool Consistency Formed Exam: General: Awake, No acute Distress Eyes/N/T: EOMI, Head/Neck: neck supple, CV: Regular with occasional ectopic, No murmurs, Pulm: Clear b/l, no wheezing/rhonchi/rales Abd: soft, nontender, +BS x4 Ext: no clubbing/cyanosis/edema Neuro: alert and Awake, follows simple commands, Skin: warm/dry Medical - PN: Obj Da - Labs CBC & Chem 7: 11/25/19 05:00 11/26/19 05:05 Labs: Abnormal Lab Results 11/26/19 11/25/19 11/25/19 05:05 19:53 16:08 RBC Hgb Hct POC Hct MCV MCH MCHC RDW MPV [place] % (Auto) Lymph # (Auto) VBG Lactic Acid POC Sodium Sodium 148 H POC Chloride Chloride Carbon Dioxide 31 H 32 H POC Total CO2 POC BUN BUN 39 H 44 H 48 H Creatinine POC Creatinine Glucose 210 H 186 H 145 H POC Glucose Hemoglobin A1c Osmolality Uric Acid Phosphorus Magnesium Lactate Dehydrogenase 442 H Total Protein Albumin 2.8 L Globulin 4.9 H Albumin/Globulin Ratio 0.6 L Triglycerides Urine Protein Urine Glucose (UA) Urine Occult Blood Ur Leukocyte Esterase Urine RBC Urine WBC Urine Bacteria 11/25/19 11/25/19 11/25/19 11:54 05:00 05:00 RBC Hgb Hct POC Hct MCV MCH MCHC RDW MPV [place] % (Auto) Lymph # (Auto) VBG Lactic Acid POC Sodium Sodium 151 H POC Chloride Chloride 110 H Carbon Dioxide 31 H POC Total CO2 POC BUN BUN 53 H Creatinine POC Creatinine Glucose 176 H POC Glucose Hemoglobin A1c 9.3 H Osmolality 355 H Uric Acid Phosphorus Magnesium Lactate Dehydrogenase Total Protein Albumin Globulin Albumin/Globulin Ratio Triglycerides Urine Protein Urine Glucose (UA) Urine Occult Blood Ur Leukocyte Esterase Urine RBC Urine WBC Urine Bacteria 11/25/19 11/25/19 11/24/19 05:00 05:00 19:25 RBC 3.26 L Hgb 11.5 L Hct 38.0 L POC Hct MCV 116.6 H MCH 35.3 H MCHC 30.3 L RDW 16.[address] [place] % (Auto) Lymph # (Auto) 1.29 L VBG Lactic Acid POC Sodium Sodium 152 H 155 H POC Chloride Chloride 113 H 112 H Carbon Dioxide 32 H POC Total CO2 POC BUN BUN 63 H 67 H Creatinine 1.3 H 1.4 H POC Creatinine Glucose 260 H 217 H POC Glucose Hemoglobin A1c Osmolality Uric Acid 9.0 H Phosphorus Magnesium 2.7 H Lactate Dehydrogenase 333 H Total Protein Albumin 3.1 L Globulin 4.9 H Albumin/Globulin Ratio 0.6 L Triglycerides 159 H Urine Protein Urine Glucose (UA) Urine Occult Blood Ur Leukocyte Esterase Urine RBC Urine WBC Urine Bacteria 11/24/19 11/24/19 11/24/19 16:43 16:20 13:28 RBC Hgb Hct POC Hct 35.0 L MCV MCH MCHC RDW MPV [place] % (Auto) Lymph # (Auto) VBG Lactic Acid POC Sodium 156 H Sodium POC Chloride 116 H Chloride Carbon Dioxide POC Total CO2 31 H POC BUN 58 H BUN Creatinine POC Creatinine 1.4 H Glucose POC Glucose 247 H Hemoglobin A1c Osmolality Uric Acid Phosphorus 4.7 H Magnesium 3.0 H Lactate Dehydrogenase Total Protein Albumin Globulin Albumin/Globulin Ratio Triglycerides Urine Protein 30 A Urine Glucose (UA) >=500 A Urine Occult Blood 0.2 A Ur Leukocyte Esterase 500 A Urine RBC 13 H Urine WBC > 182 H Urine Bacteria Few A 11/24/19 11/24/19 11/24/19 13:25 12:44 11:58 RBC Hgb Hct POC Hct MCV MCH MCHC RDW MPV [place] % (Auto) Lymph # (Auto) VBG Lactic Acid 2.1 H POC Sodium Sodium 151 H POC Chloride Chloride 110 H Carbon Dioxide POC Total CO2 POC BUN BUN 72 H Creatinine 1.6 H POC Creatinine Glucose 361 H POC Glucose Hemoglobin A1c Osmolality 366 H Uric Acid Phosphorus Magnesium Lactate Dehydrogenase Total Protein 8.6 H Albumin Globulin 5.2 H Albumin/Globulin Ratio 0.7 L Triglycerides Urine Protein Urine Glucose (UA) Urine Occult Blood Ur Leukocyte Esterase Urine RBC Urine WBC Urine Bacteria 11/24/19 11:58 RBC 3.39 L Hgb 12.1 L Hct 38.5 L POC Hct MCV 113.6 H MCH 35.7 H MCHC RDW 16.[address] % (Auto) 12.9 H Lymph # (Auto) VBG Lactic Acid POC Sodium Sodium POC Chloride Chloride Carbon Dioxide POC Total CO2 POC BUN BUN Creatinine POC Creatinine Glucose POC Glucose Hemoglobin A1c Osmolality Uric Acid Phosphorus Magnesium Lactate Dehydrogenase Total Protein Albumin Globulin Albumin/Globulin Ratio Triglycerides Urine Protein Urine Glucose (UA) Urine Occult Blood Ur Leukocyte Esterase Urine RBC Urine WBC Urine Bacteria Meds: Medications Acetaminophen (Tylenol) 650 mg PO Q6HP PRN PRN Reason: PAIN/FEVER > 101 Albuterol/Ipratropium (Duoneb) 3 ml NEB Q4HP PRN PRN Reason: Shortness Of Breath Buspirone HCl (Buspar) 10 mg PO BID [facility] Last Admin: 11/25/19 21:17 Dose: 10 mg Documented by: Ceftriaxone Sodium (Rocephin) 1 gm IV Q24H [facility] Last Admin: 11/25/19 15:16 Dose: 1 gm Documented by: Dextrose (Dextrose 50%) 0 ml IV UD PRN PRN Reason: Hypoglycemia Diagnostic Test (Pha) (Accu-Chek) 1 each FS ACHS [facility] Last Admin: 11/25/19 21:17 Dose: Not Given Documented by: Divalproex Sodium (Depakote Delayed Release) 500 mg PO TID [facility] Last Admin: 11/25/19 21:17 Dose: 500 mg Documented by: Docusate Sodium (Colace) 100 mg PO BID [facility] Last Admin: 11/25/19 21:18 Dose: Not Given Documented by: Enoxaparin Sodium (Lovenox) 40 mg SQ DAILY [facility] Last Admin: 11/25/19 08:53 Dose: 40 mg Documented by: Fluoxetine HCl (Prozac) 10 mg PO DAILY [facility] Last Admin: 11/25/19 08:54 Dose: 10 mg Documented by: Glucose (Insta-Glucose) 15 gm PO PRN PRN PRN Reason: Hypoglycemia Potassium Chloride 40 meq/ (Dextrose) 520 mls @ 130 mls/hr IV UD PRN PRN Reason: Potassium < 3 Magnesium Sulfate (Magnesium Sulfate) 2 gm in 50 mls @ 50 mls/hr IV UD PRN PRN Reason: Magnesium </= 1.6 Insulin Human Regular 50 unit/ (Sodium Chloride) 100 mls @ 0 mls/hr IV DUR [facility]; Protocol Insulin Human Regular 50 unit/ (Dextrose) 100 mls @ 0 mls/hr IV DUR [facility]; Protocol Dextrose (Dextrose 5% In Water) 1,000 mls @ 75 mls/hr IV .[id number] [facility] Last Infusion: 11/25/19 22:01 Dose: 0 mls/hr Documented by: Insulin Human Lispro (Humalog) 0 unit SQ ACHS [facility]; Protocol Last Admin: 11/26/19 04:06 Dose: 6 unit Documented by: Ondansetron HCl (Zofran) 4 mg IV Q4HP PRN PRN Reason: Nausea And Vomiting Pantoprazole Sodium (Protonix) 40 mg IV QAMAC [facility] Last Admin: 11/25/19 08:53 Dose: 40 mg Documented by: Bimatoprost [Lumigan (] Ophth Dps) 1 dose OU QPM [facility] Last Admin: 11/25/19 21:18 Dose: Not Given Documented by: Dorzolamide 2% Ophth (Dps) 1 dose BOTH EYES BID [facility] Last Admin: 11/25/19 21:18 Dose: Not Given Documented by: Timolol Maleate [ (Timoptic] Ophth Dps) 1 dose BOTH EYES BID [facility] Last Admin: 11/25/19 21:18 Dose: Not Given Documented by: Polyethylene Glycol (Miralax) 17 gm PO DAILYP PRN PRN Reason: Constipation Potassium Chloride (Kdur) 40 meq PO UD PRN PRN Reason: Potssium is 3-3.5 Potassium Chloride (Kdur) 40 meq PO UD PRN PRN Reason: Potassium < 3 Quetiapine Fumarate (Seroquel) 100 mg PO BID [facility] Last Admin: 11/25/19 21:17 Dose: 100 mg Documented by: Senna (Senokot) 2 tab PO DAILYP PRN PRN Reason: Constipation Simvastatin (Zocor) 10 mg PO HS [facility] Last Admin: 11/25/19 21:17 Dose: 10 mg Documented by: Sodium Chloride (Saline Flush) 10 ml IV Q8 [facility] Last Admin: 11/26/19 05:08 Dose: 10 ml Documented by: Tamsulosin HCl (Flomax) 0.4 mg PO QHS [facility] Last Admin: 11/25/19 21:17 Dose: 0.4 mg Documented by: Medical - PN: A/P - Time Spent With Patient Total time spent is greater than 50% in coordination of care (as documented) at patient's floor/unit and/or counseling patient: - Narrative A/P Narrative: A: *Hypernatremia: 2/2 dehydration -suspect this is chronic and not acute. 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: 2/2 above -resolved *UTI on admit (GNB): *DM w/Hyperglycemia: Is on Invokana glimepiride and Januvia -was >500 @SNF prior to arrival -etiology uncontrolled DM's vs not taking medications correctly vs infection which is likely at least portion of issue -A1c 9.3 *Encephalopathy: IMproved *Development delay from Jose Rafael syndrome: *Seizure disorder: *Hyperlipidemia: *GERD *BPH: *Dysphagia (h/o aspiration PNA @[facility] in October): * P: -D5W d/c today -d/c insulin gtt -restart home oral meds when insulin gtt off, may need med adjustment or more frequent accuchecks with temporary SSI at SNF -encourage oral hydration -cont psych meds -Pured diet per ST -hold home aldactone - -pt/ot -ppx: lovenox/home ppi
[2019-11-26 07:23] LABS: Osmolality,Urine 813 mOsm/kg (80-1000)
[2019-11-26] MEDS ORDERED: GLIMEPIRIDE 2 MG TABLET PO SCH (07:30)
[2019-11-26] MEDS: PANTOPRAZOLE 40 MG VIAL IV SCH (07:33)
[2019-11-26] MEDS ORDERED: sitaGLIPtin 100 MG TABLET PO SCH (09:00)
[2019-11-26] MEDS: FLUoxetine HCL 10 MG CAPSULE PO SCH (10:13)
[2019-11-26] MEDS: DIVALPROEX SODIUM 250 MG TABLET PO SCH ×3 (10:13→21:01)
[2019-11-26] MEDS: busPIRone 5 MG TABLET PO SCH ×2 (10:13→21:01)
[2019-11-26] MEDS: DOCUSATE SODIUM 100 MG CAPSULE PO SCH ×2 (10:14→21:00)
[2019-11-26] MEDS: ENOXAPARIN 40 MG/0.4 ML SYRINGE SQ SCH (10:14)
[2019-11-26] MEDS: cefTRIAXone 1 GM VIAL IV SCH (10:15)
[2019-11-26] MEDS: DORZOLAMIDE 2% BOTH EYES SCH ×2 (10:57→21:02)
[2019-11-26] MEDS: TIMOLOL MALEATE BOTH EYES SCH ×2 (10:57→21:02)
--- NOTE | 2019-11-26 10:59 | Discharge Summary ---
Medical - DS: Prov Patient information: Note initiated : 11/26/19 at 10:52 am Service Date, if different from initiated Date: [] Patient: Keny Mccartney 64 y/o M admitted on 11/24/19 for High blood sugar. Chief Complaint: [] Date of admission: 11/24/19 21:48 Discharge date: 11/27/19 Primary care physician: Yumiko Hernandez Consults: 11/24/19 Consult to Physician [CONS] Stat Comment: Consulting Provider: Piero Jones Reason For Exam: Physician to Consult Medical - DS: Meds - Discharge Medications Prescriptions: Ciprofloxacin [Cipro] 500 mg PO BID #6 tab Insulin Lispro [Humalog] See Protocol SQ BIDAC #10 ml Active and Home Medications: Home Medications EPINEPHrine [Epipen 2-Jaguar] 0.3 mg .ROUTE ONCE 04/25/15 [History Confirmed 11/24/19 Last Taken Unknown] FLUoxetine HCL [Prozac] 10 mg PO DAILY 04/25/15 [History Confirmed 11/24/19 Last Taken 07/06/19] Omeprazole [Prilosec] 20 mg PO DAILY 04/25/15 [History Confirmed 11/24/19 Last Taken 07/06/19] Pravastatin [Pravachol] 20 mg PO HS 04/25/15 [History Confirmed 11/24/19 Last Taken 07/06/19] bimatoprost 0.01 % eye drops 1 drp OU QPM 05/05/17 [History Confirmed 11/25/19 Last Taken Unknown] buspirone 10 mg tablet 10 mg PO BID tab 05/05/17 [History Confirmed 11/24/19 Last Taken 07/06/19] divalproex 500 mg tablet,delayed release 500 mg PO TID tab 05/05/17 [History Confirmed 11/24/19 Last Taken 07/06/19] loratadine 10 mg tablet 10 mg PO QDAY 05/05/17 [History Confirmed 11/24/19 Last Taken 07/06/19] quetiapine 50 mg tablet 100 mg PO BID 05/05/17 [History Confirmed 11/24/19 Last Taken Unknown] Ascorbic Acid [Vitamin C with Nga Hips] 500 mg PO DAILY 11/24/19 [History Confirmed 11/24/19 Last Taken Unknown] Bisacodyl [Dulcolax] 10 mg AR DAILY PRN 11/24/19 [History Confirmed 11/24/19 Last Taken Unknown] Canagliflozin [Invokana] 300 mg PO DAILY 11/24/19 [History Confirmed 11/24/19 Last Taken Unknown] Cholecalciferol (Vitamin D3) [Vitamin D3] 5,000 units PO DAILY 11/24/19 [History Confirmed 11/24/19 Last Taken Unknown] Glimepiride 8 mg PO DAILY 11/24/19 [History Confirmed 11/24/19 Last Taken Unknown] Glucagon,Human Recombinant [Glucagon Emergency Kit] 1 mg IM Q15M PRN 11/24/19 [History Confirmed 11/24/19 Last Taken Unknown] Magnesium Hydroxide [Milk of Magnesia] 30 ml PO DAILY PRN 11/24/19 [History Confirmed 11/24/19 Last Taken Unknown] Na Phos,M-B/Na Phos,Di-Ba [Fleets Adult] 1 dose AR DAILY PRN 11/24/19 [History Confirmed 11/24/19 Last Taken Unknown] Spironolactone [Aldactone] 25 mg PO DAILY 11/24/19 [History Confirmed 11/24/19 Last Taken Unknown] Tamsulosin HCl [Flomax] 0.4 mg PO QHS 11/24/19 [History Confirmed 11/24/19 Last Taken Unknown] Timolol Maleate [Timoptic] 1 gtt BOTH EYES BID 11/24/19 [History Confirmed 11/24/19 Last Taken Unknown] Tolnaftate Crm 1% [Tinactin Cream 1%] 1 dose TOPICAL DAILY PRN 11/24/19 [History Confirmed 11/24/19 Last Taken Unknown] Vitamin E 400 unit PO DAILY 11/24/19 [History Confirmed 11/24/19 Last Taken Unknown] sitaGLIPtin [Januvia] 100 mg PO DAILY 11/24/19 [History Confirmed 11/24/19 Last Taken Unknown] Dorzolamide 2% Ophth Drops [Trusopt 2% Ophth Drops] 1 gtt OU BID 11/25/19 [History Confirmed 11/25/19 Last Taken Unknown] Medical - DS: Hosp Hospital Course: Mr. 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 He lives in a private apartment and had 24 caregivers. But was hospitalized at [facility] in early October for pneumonia. He was discharged to [facility] and has been there for the past month. Is felt that he developed aspiration pneumonia. Patient unable to give history and history obtained from chart. Per the chart patient has had lethargy over the past couple days and was noted to have a blood sugar greater than 500 at the nursing facility and thus sent in. In the ED was treated with IV fluids and insulin which improved his mild elevated lactate and his hyperglycemia. He was noted to have a sodium level of 151 and a creatinine of 1.6 with a BUN of 72. 11/25 Patient much more alert this morning. Opens eyes to voice and follows some simple commands. No overnight events. 11/26 Patient doing well. No overnight events. Pain by speech therapy and recommended to continue on pured diet. 11/27 No overnight events. Patient stable for discharge to senior living facility. A: *Hypernatremia: 11/03 dehydration -suspect this is chronic and not acute. 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: *Seizure disorder: *Hyperlipidemia: *GERD *BPH: *Dysphagia (h/o aspiration PNA @[facility] in October): * Discharge diagnosis: Dehydration hypernatremia acute kidney injury UTI hyperglycemia diabetes Secondary discharge diagnosis: Jose Rafael syndrome seizure disorder hyperlipidemia GERD BPH dysphagia - Time Spent with Patient Total time spent providing and/or coordinating discharge services: Greater than 30 minutes Medical - DS: Exam - Constitutional Vitals: Vital Signs Temp Pulse Resp BP BP Pulse Ox 11/26/19 08:02 98.3 F 18 116/53 96 11/26/19 06:01 127/63 11/26/19 04:02 98.0 F 95 H 113/59 11/26/19 03:02 94 H 115/71 11/26/19 02:02 16 99/63 99 11/26/19 02:00 16 99 11/26/19 01:02 18 105/68 99 11/26/19 00:02 98.8 F 20 127/80 94 11/25/19 23:02 129/60 11/25/19 22:02 117/59 11/25/19 21:02 137/52 11/25/19 20:02 97.9 F 22 131/76 94 11/25/19 19:04 118/73 11/25/19 18:02 138/83 11/25/19 15:32 98.6 F 72 20 106/72 99 11/25/19 14:00 20 97 11/25/19 12:15 98.9 F 82 18 125/63 100 Intake and Output 11/25/19 11/26/19 11/26/19 21:59 05:59 13:59 Intake Total 3062 650 250 Output Total 1000 950 Balance 2062 -300 250 Intake: IV 2582 50 Dextrose 5% in Water 1,000 ml @ 2582 50 75 mls/hr IV .[id number] [facility] Rx#: [id number] Oral 480 600 250 Output: Urine Catheter Amount 1000 950 Other: Meal Dinner Breakfast Percent of Meal Consumed 75% 50% Feeding Ability Total Assistance Total Assistance Urine Appearance Sediment Cloudy Sediment Straight Cloudy Cloudy Sediment Urine Color [place] Bright Yellow Straight Bright Yellow Dark Yellow Stool Size Large Stool Color Brown Stool Consistency Formed Weight 100.516 kg Medical - DS: Data Labs on day of discharge: Labs from last 24 hours 11/26/19 11/26/19 11/26/19 05:50 05:05 05:05 Sodium 144 Potassium 4.2 Chloride 108 Carbon Dioxide 25 Anion Gap 11.0 BUN 39 H Creatinine 1.0 GFR Calculation 80 Glucose 210 H Hemoglobin A1c Estim Average Glucose Osmolality 331 H Uric Acid 6.6 Calcium 8.9 Phosphorus 2.8 Magnesium 2.5 Total Bilirubin 1.0 Direct Bilirubin < 0.2 GGT 47 AST 31 ALT 7 Alkaline Phosphatase 47 Lactate Dehydrogenase 442 H Total Protein 7.7 Albumin 2.8 L Globulin 4.9 H Albumin/Globulin Ratio 0.6 L Triglycerides 133 Urine Osmolality 813 Ur Random Sodium < 20 11/25/19 11/25/19 11/25/19 19:53 16:08 11:54 Sodium 145 148 H 151 H Potassium 3.5 3.3 3.5 Chloride 105 108 110 H Carbon Dioxide 31 H 32 H 31 H Anion Gap 9.0 8.0 10.0 BUN 44 H 48 H 53 H Creatinine 1.1 1.1 1.2 GFR Calculation 71 71 64 Glucose 186 H 145 H 176 H Hemoglobin A1c Estim Average Glucose Osmolality Uric Acid Calcium 9.1 9.3 9.4 Phosphorus Magnesium Total Bilirubin Direct Bilirubin GGT AST ALT Alkaline Phosphatase Lactate Dehydrogenase Total Protein Albumin Globulin Albumin/Globulin Ratio Triglycerides Urine Osmolality Ur Random Sodium 11/25/19 05:00 Sodium Potassium Chloride Carbon Dioxide Anion Gap BUN Creatinine GFR Calculation Glucose Hemoglobin A1c 9.3 H Estim Average Glucose 220 Osmolality Uric Acid Calcium Phosphorus Magnesium Total Bilirubin Direct Bilirubin GGT AST ALT Alkaline Phosphatase Lactate Dehydrogenase Total Protein Albumin Globulin Albumin/Globulin Ratio Triglycerides Urine Osmolality Ur Random Sodium Preliminary micro results at discharge 11/24/19 15:30 Blood Culture - Preliminary Blood 11/24/19 15:20 Blood Culture - Preliminary Blood 11/24/19 13:28 Urine Culture - Preliminary Urine - Catheterized Gram negative bacillus Gram negative bacillus#2 Medical - DS: A/P - Patient/Caregiver Discharge Instructions Activity: increase activity as tolerated Diet: Dysphagia Level 4 Pureed Foods (encourage oral hydration) Prescriptions: Ciprofloxacin [Cipro] 500 mg PO BID #6 tab Insulin Lispro [Humalog] See Protocol SQ BIDAC #10 ml Other Amb Orders: Wound Care Instructions Location: None Selected Basic Metabolic Panel Time Frame: 1 Week, Location: None Selected - Follow up Plan Follow up with: Terence Quevedo MD [Physician] - (follow up for sacral pressure ulcer at wound clinic) Yumiko Hernandez MD [Primary Care Provider] - Disposition: Xfer SNF Prognosis: Undetermined Rehab Potential: Fair I certify that the patient requires SNF services: Yes Overall status at discharge: patient is progressing back to baseline
[2019-11-26] MEDS: QUEtiapine 100 MG TABLET PO SCH ×2 (11:16→21:01)
[2019-11-26 12:42] LABS: Blood Urea Nitrogen 33 mg/dl (8-23); Calcium 8.5 mg/dl (8.6-10.4); Carbon Dioxide 28 mmol/L (22-30); Chloride 103 mmol/L (96-108); Glomerular Filtration Rate 80; Glucose 305 mg/dL (70-105)
[2019-11-26] MEDS: DEXTROSE 5% IN WATER 1,000 ML IV SCH (14:02)
[2019-11-26] MEDS ORDERED: DEXTROSE 5% IV PRN (18:43)
[2019-11-26] MEDS ORDERED: MAGNESIUM SULFATE 2 GM/50 ML BAG IV PRN (18:43)
[2019-11-26] MEDS ORDERED: IPRATROPIUM/ALBUTEROL 3 ML AMPUL.NEB NEB PRN (18:43)
[2019-11-26] MEDS ORDERED: SENNOSIDES 1 TABLET PO PRN (18:43)
[2019-11-26] MEDS ORDERED: INSULIN REGULAR, HUMAN 50 UNIT in 0.9 % SODIUM CHLORIDE 99.5 ML IV SCH (18:43)
[2019-11-26] MEDS ORDERED: POLYETHYLENE GLYCOL 3350 17 GM PACKET PO PRN (18:43)
[2019-11-26] MEDS ORDERED: DEXTROSE 50% 50 ML VIAL IV PRN (18:43)
[2019-11-26] MEDS ORDERED: POTASSIUM CHLORIDE 40 MEQ in DEXTROSE 5% IN WATER 500 ML IV PRN (18:43)
[2019-11-26] MEDS ORDERED: DEXTROSE 31 GM ORAL.SUSP PO PRN (18:43)
[2019-11-26] MEDS ORDERED: DEXTROSE 5% IN WATER 1,000 ML IV SCH (18:43)
[2019-11-26] MEDS ORDERED: INSULIN REGULAR IV PRN (18:43)
[2019-11-26] MEDS ORDERED: ONDANSETRON 4 MG/2 ML VIAL IV PRN (18:43)
[2019-11-26] MEDS ORDERED: WATER IV PRN (18:43)
[2019-11-26] MEDS ORDERED: POTASSIUM CHLORIDE 20 MEQ TABLET PO PRN ×2 (18:43)
[2019-11-26] MEDS ORDERED: HUMAN IV PRN (18:43)
[2019-11-26] MEDS ORDERED: ACETAMINOPHEN 325 MG TABLET PO PRN (18:43)
[2019-11-26] MEDS ORDERED: SIMVASTATIN 10 MG TABLET PO SCH (21:00)
[2019-11-26] MEDS ORDERED: TAMSULOSIN 0.4 MG CAPSULE PO SCH (21:00)
[2019-11-27] MEDS: 0.9 % SODIUM CHLORIDE 10 ML SYRINGE IV SCH (05:01)
[2019-11-27] MEDS: INSULIN LISPRO 1 UNIT/0.01 ML UNIT SQ SCH (07:22)
[2019-11-27] MEDS ORDERED: PANTOPRAZOLE 40 MG VIAL IV SCH (07:30)
[2019-11-27] MEDS ORDERED: GLIMEPIRIDE 2 MG TABLET PO SCH (07:30)
[2019-11-27] MEDS ORDERED: FUROSEMIDE 20 MG/2 ML VIAL IV ONE (08:44)
[2019-11-27] MEDS ORDERED: ENOXAPARIN 40 MG/0.4 ML SYRINGE SQ SCH (09:00)
[2019-11-27] MEDS ORDERED: FLUoxetine HCL 10 MG CAPSULE PO SCH (09:00)
[2019-11-27] MEDS ORDERED: sitaGLIPtin 100 MG TABLET PO SCH (09:00)
[2019-11-27] MEDS ORDERED: cefTRIAXone 1 GM VIAL IV SCH (09:00)
[2019-11-27] MEDS: TIMOLOL MALEATE BOTH EYES SCH (09:16)
[2019-11-27] MEDS: DORZOLAMIDE 2% BOTH EYES SCH (09:16)
[2019-11-27] MEDS: DIVALPROEX SODIUM 250 MG TABLET PO SCH (10:21)
[2019-11-27] MEDS: busPIRone 5 MG TABLET PO SCH (10:21)
[2019-11-27] MEDS: DOCUSATE SODIUM 100 MG CAPSULE PO SCH (10:21)
[2019-11-27] MEDS: QUEtiapine 100 MG TABLET PO SCH (10:22)
== END 2019-11-27 11:45 | DRG 640 ==
LOC: ED 11:39 → ICU 21:48 → MEDSUR 11-27 08:50
PROVIDERS: ADMIT Internal Medicine; ATTEND Internal Medicine